=== PATIENT | male | born 1995 | race American Indian/Alaskan Native ===

== ENCOUNTER 2021-06-25 18:26 | Emergency (ER) | payer OTHER ==
[2021-06-25] MEDS ORDERED: IPRATROPIUM/ALBUTEROL SULFATE 3 ML AMPUL.NEB IH ONE (22:43)
[2021-06-25] MEDS ORDERED: methylPREDNISolone Sod Succinate 125 MG/2 ML INJ IV ONE (22:43)
--- NOTE | 2021-06-25 22:58 | Emergency Department Report ---
HPI - General Chief Complaint: Dyspnea/Respdistress PUI?: Yes Time Seen by Provider: 06/25/21 22:32 - HPI HPI: 26-year-old male with history of asthma presents complaining of 3 days of chest tightness and shortness of breath. The patient states that he has had fever, body aches, and dry cough over that period of time. He says he has been using his albuterol inhaler but ran out of it yesterday. Today he feels short of breath and with chest tightness like a bad asthma attack. He says he took a home COVID-19 test which was positive. He is not vaccinated against COVID-19. Other than the chest tightness and shortness of breath he denies any associated headache, vision change, neck pain, palpitations, syncope, abdominal pain, nausea/vomiting, focal weakness, sensory changes, or any other complaints. ED Past Medical Hx - Past Medical History Previous Medical History?: Yes Additional medical history: Asthma - Surgical History Past Surgical History?: No - Medications Home Medications: Home Medications Medication Instructions Recorded Confirmed Last Taken Type Ipratropium (Nf) [Atrovent] 2 puff IH Q6HR PRN #1 inha 06/26/21 Unknown Rx ED Review of Systems ROS: Stated complaint: COVID POSSITIVE Other details as noted in HPI Comment: All other systems reviewed and negative Constitutional: fever, malaise. denies: chills Eyes: denies: eye pain, vision change ENT: congestion. denies: throat pain Respiratory: cough, shortness of breath, wheezing Cardiovascular: other (chest tightness). denies: edema, syncope Gastrointestinal: denies: abdominal pain, nausea, vomiting Genitourinary: denies: dysuria, hematuria Musculoskeletal: denies: back pain, arthralgia Skin: denies: rash, lesions Neurological: denies: headache, weakness Hematological/Lymphatic: denies: easy bleeding Physical Exam - Physical Exam Vital Signs: Vital Signs 06/25/21 06/25/21 19:45 22:38 Temperature 101.4 F H 98.9 F Pulse Rate 108 H 109 H Respiratory 18 Rate Blood Pressure 148/77 Blood Pressure 132/73 [Right] O2 Sat by Pulse 97 98 Oximetry Physical Exam: GENERAL: Well developed and well nourished. No acute distress HEAD: Normocephalic. No obvious signs of trauma. ENT: Dry mucous membranes. EYES: Extraocular movements are intact. Pupils are equal round and reactive to light bilaterally NECK: Supple. Full ROM is intact. Trachea is midline. LUNGS: Tachypneic but not in respiratory distress.. Equal chest rise bilaterally. There are coarse breath sounds with faint end expiratory wheezes. Otherwise clear to auscultation bilaterally. CARDIOVASCULAR: Tachycardic but with regular rhythm. No murmurs or rubs. VASCULAR: Cap refill < 2 seconds ABDOMEN: Abdomen is soft and nondistended. There is no significant tenderness, guarding or rebound. SKIN: Skin is warm and dry NEURO: Patient is awake, alert, and oriented. laboratory cureman II-XII grossly intact. No focal deficits. Normal motor and sensory exam throughout. Normal speech. MUSCULOSKELETAL: No obvious deformities. No significant tenderness. Normal ROM throughout. ED Course Vital Signs 06/25/21 06/25/21 19:45 22:38 Temperature 101.4 F H 98.9 F Pulse Rate 108 H 109 H Respiratory 18 Rate Blood Pressure 148/77 Blood Pressure 132/73 [Right] O2 Sat by Pulse 97 98 Oximetry ED Medical Decision Making - Lab Data Result diagrams: 06/25/21 23:18 06/25/21 23:18 - EKG Data -: EKG Interpreted by Me - EKG Data 06/25/21 23:02 Sinus tachycardia. Normal axis. Normal intervals. No ectopy. There are T wave inversions noted in the inferior leads II, III, and aVF. There are no significant ST segment abnormalities. - Radiology Data Radiology results: report reviewed - Medical Decision Making 26-year-old male with history of asthma presents with 3 days of URI symptoms as well as shortness of breath and chest congestion. Patient had at home COVID-19 test which was positive. Patient ran out of his albuterol yesterday. On initial assessment he has a fever of 101.4. He is tachycardic in the 100s. Vitals are otherwise normal. On physical examination he has very dry mucous membranes. Lung auscultation reveals coarse breath sounds with faint end expi ratory wheezes. We will perform work-up with a full set of labs, EKG, and chest x-ray. We will give 2 L of IV fluids, duo nebs, and a dose of Decadron and reassess. Labs have resulted and reveal no significant leukocytosis or anemia. Creatinine is within normal range and there are no significant electrolyte abnormalities. Chest x-ray reveals no acute abnormalities. On repeat assessment after breathing treatments, the patient reports feeling much improved. He no longer has chest tightness. However, he has not received IV fluids. He remains tachycardic in the 120s. Will reassess after IV fluids. Patient was reassessed by Dr. Young. Vital signs improved and patient was discharged home with an inhaler and instructions for close follow-up. Critical care attestation.: If time is entered above; I have spent that time in minutes in the direct care of this critically ill patient, excluding procedure time. ED Disposition Clinical Impression: COVID-19, Asthma exacerbation Disposition: 01 HOME / SELF CARE / HOMELESS Is pt being admited?: No Condition: Stable Instructions: Asthma, Adult, COVID-19 Frequently Asked Questions, COVID-19, Asthma and Physical Activity Prescriptions: Ipratropium (Nf) [Atrovent] 2 puff IH Q6HR PRN #1 inha PRN Reason: Wheezing Referrals: PRIMARY CARE, [Primary Care Provider] - 3-5 Days
--- NOTE | 2021-06-25 23:12 | XRay Report ---
CHEST 2 VIEWS INDICATION / CLINICAL INFORMATION: SOB. COMPARISON: None available. FINDINGS: SUPPORT DEVICES: None. HEART / MEDIASTINUM: No significant abnormality. LUNGS / PLEURA: No significant pulmonary abnormality. No significant pleural effusion. No pneumothora x. ADDITIONAL FINDINGS: No significant additional findings. IMPRESSION: 1. No acute abnormality of the chest. Signer Name: Wesley Bustamante MD Signed: 06/25/2021 11:08 PM Workstation Name: [id number]
[2021-06-26 00:11] LABS: Basophils % (Auto) 0.6 % (0.0-1.8); Eosinophils % (Auto) 0.1 % (0.0-4.3); Hematocrit 46.5 % (35.5-45.6); Hemoglobin 14.6 gm/dl (11.8-15.2); Lymphocytes # (Auto) 0.5 K/mm3 (1.2-5.4); Lymphocytes % (Auto) 8.6 % (13.4-35.0); Mean Corpuscular HGB Conc 32 % (32-34); Mean Corpuscular Volume 92 fl (84-94); Monocytes # (Auto) 0.8 K/mm3 (0.0-0.8); Monocytes % (Auto) 13.4 % (0.0-7.3); Platelet Count 187 K/mm3 (140-440); Red Blood Count 5.04 M/mm3 (3.65-5.03); Red Cell Distribution Width 13.7 % (13.2-15.2)
[2021-06-26 00:16] LABS: Alanine Aminotransferase 17 units/L (7-56); Albumin 4.2 g/dL (3.9-5); BUN/Creatinine Ratio 8; Blood Urea Nitrogen 8 mg/dL (9-20); Hemolysis Index 12
[2021-06-26 00:49] LABS: Bilirubin,Direct < 0.2 mg/dL (0-0.2)
[2021-06-26] MEDS ORDERED: methylPREDNISolone Sod Succinate 125 MG/2 ML INJ ONE (00:58)
[2021-06-26] MEDS ORDERED: ACETAMINOPHEN 500 MG TAB PO ONE (01:00)
[2021-06-26] MEDS ORDERED: dexAMETHasone 4 MG/ML VIAL IV ONE (01:00)
[2021-06-26] MEDS ORDERED: SODIUM CHLORIDE 0.9% 1000 ML 1,000 ML IV ONE ×2 (01:00)
[2021-06-26 04:48] VITALS: BP 138/69
--- NOTE | 2021-06-26 13:29 | Electrocardiograph Report ---
[facility] Test Date: 2021-06-25 Test Time: 22:45:14 Pat Name: CAMILA GARVIN Department: Room: Gender: M Reaming Machine Tender: BRENNAN : 1995 Requested By: JAYME REZA Order Number: [id number] Reading MD: Kristin Douglas Measurements Intervals [place] Rate: 102 P: 36 AK: 143 QRS: 40 QRSD: 88 T: -30 QT: 308 QTc: 403 Interpretive Statements Sinus tachycardia Nonspecific T abnormalities, inferior leads No previous ECG available for comparison Electronically Signed On 06-26-2021 13:28:58 EST by Kristin Douglas
== END 2021-06-26 04:00 | disposition home or self-care (01) ==
LOC: ED 18:26
DX: U07.1 COVID-19 (principal); J45.901 Unspecified asthma with (acute) exacerbation
CPT/HCPCS: 36415; 71046; 80048; 80076; 83735; 84484; 85025; 87040; 93005; 94640; 96361; 96374; 99284; J1100; J2930; J7030; 94644; Q0162